=== PATIENT | male | born 1930 | race Caucasian/White ===

== ENCOUNTER → 2016-11-12 | Outpatient (CLI) | payer MEDICARE, BC ==
[~2016-11-12] MED LIST: ARICEPT10 MG PO; COUMADIN2.5 MG PO; KLOR-CON M2020 MEQ PO; LASIX20 MG PO; LEVAQUIN500 MG PO; LEXAPRO10 MG PO; LIPITOR TAB 2020 MG PO; PROTONIX 20 MG20 MG PO; SINEMET 25-1001 EACH PO; SYNTHROID50 MCG PO; TOPROL XL50 MG PO; ZESTRIL10 MG PO
[2016-11-12 10:14] LABS: TOTAL PROTEIN, BODY FLUID 1.9 gm/dL
== END ==
LOC: OPSV 07:00
PROVIDERS: Internal Medicine Pulmonary Disease
DX: J90 Pleural effusion, not elsewhere classified (principal); I51.7 Cardiomegaly; I87.8 Other specified disorders of veins
CPT/HCPCS: 32555; 36415; 71020; 83615; 84157; 85610